=== PATIENT | female | born 1995 | race Caucasian/White ===

== ENCOUNTER 2018-05-24 14:45 | Emergency (ER) | payer BC, OTHER ==
[~2018-05-24] VITALS: Ht 170.2 cm; Wt 74.3 kg
--- NOTE | 2018-05-24 15:26 | NUR ---
PT AMBULATORY TO IMAGING; WILL GO TO ROOM 15 POST X-RAYS.
[2018-05-24] MEDS ORDERED: IBUPROFEN 600 MG TABLET PO ONE (15:30)
[2018-05-24] MEDS ORDERED: SODIUM CHLORIDE 0.9% 1,000ML IVBOLUS ONE (15:30)
[2018-05-24 15:46] LABS: RAPID INFLUENZA A Negative (Negative); RAPID INFLUENZA B Negative (Negative)
[2018-05-24] MEDS ORDERED: IBUPROFEN 200 MG TABLET ONE (15:58)
[2018-05-24 16:05] LABS: BASOPHILS # (AUTO) 0.01 x10^3/uL (0-0.3); BASOPHILS % (AUTO) 0 % (0-1); EOSINOPHILS # (AUTO) 0.03 x10^3/uL (0-0.8); EOSINOPHILS % (AUTO) 1 % (1-7); LYMPHOCYTES # (AUTO) 1.09 x10^3/uL (1-6.1); LYMPHOCYTES % (AUTO) 16 % (22-44); MD NO; MEAN CORPUSCULAR HEMOGLOBIN 30.1 pg (27.0-34.8); MEAN CORPUSCULAR HGB CONC 33.7 g/dL (32.4-35.8); MEAN CORPUSCULAR VOLUME 89.5 fL (80-100); MEAN PLATELET VOLUME 7.8 fL (7.4-10.4); MONOCYTES # (AUTO) 0.76 x10^3/uL (0-1.4); MONOCYTES % (AUTO) 11 % (2-9); NEUTROPHILS % (AUTO) 73 % (42-75); PLATELET COUNT 254 x10^3/uL (130-400); RED BLOOD COUNT 5.14 x10^6/uL (3.82-5.3); RED CELL DISTRIBUTION WIDTH 13.4 % (9.6-15.2)
[2018-05-24 16:15] LABS: ALANINE AMINOTRANSFERASE 26 U/L (12-78); ALBUMIN 4.7 g/dL (3.4-5.0); ANION GAP 8 mmol/L (5-15); CALCIUM 8.9 mg/dL (8.5-10.1); CHLORIDE 106 mmol/L (98-107)
[2018-05-24 16:18] LABS: ALKALINE PHOSPHATASE 61 U/L (45-117); BILIRUBIN,TOTAL 0.5 mg/dL (0.2-1.0); CREATININE 0.84 mg/dL (0.55-1.02); TOTAL PROTEIN 8.9 g/dL (6.4-8.2)
[2018-05-24 17:03] LABS: MICROSCOPIC NOT IND
[2018-05-24] MEDS ORDERED: ACETAMINOPHEN 500 MG TABLET ONE (17:09)
[2018-05-24 17:11] LABS: CULTURE INDICATED? NO
[2018-05-24] MEDS ORDERED: ACETAMINOPHEN 500 MG TABLET PO ONE (17:30)
[2018-05-24] MEDS ORDERED: CEFTRIAXONE PMX 1GM/50ML 50 ML ONE (18:10)
[2018-05-24] MEDS ORDERED: CEFTRIAXONE PMX 1GM/50ML 50 ML IV ONE (18:30)
[2018-05-24 18:47] VITALS: BP 111/48
== END 2018-05-24 18:49 | disposition home or self-care (01) ==
LOC: ED 15:57
DX: B34.9 Viral infection, unspecified (principal); R50.81 Fever presenting with conditions classified elsewhere; M79.10 Myalgia, unspecified site
CPT/HCPCS: 36415; 71046; 80053; 81003; 83605; 84145; 85025; 87040; 87081; 87400; 87880; 93005; 96361; 96365; 99284; J0696; J7030